=== PATIENT | female | born 1970 | race Caucasian/White ===

== ENCOUNTER 2019-01-20 06:00 | Outpatient (RCR) | payer OTHER, SELFPAY | END 2019-02-19 00:01 | LOC: GPT 06:00 | PROVIDERS: Visit Provider Family Medicine | DX: R51 Headache (principal); V89.2XXA Person injured in unspecified motor-vehicle accident, traffic, initial encounter | CPT/HCPCS: 97110 ×5; 97140 ×5; G0283 ×4 ==

== ENCOUNTER 2019-06-19 06:00 | Outpatient (RCR) | payer BC, SELFPAY | END 2019-06-20 23:59 | disposition home or self-care (01) | LOC: GPT 06:00 | PROVIDERS: PCP Family Medicine; Referring Provider Family Medicine; Visit Provider Family Medicine | DX: S46.912D Strain of unspecified muscle, fascia and tendon at shoulder and upper arm level, left arm, subsequent encounter (principal); X58.XXXD Exposure to other specified factors, subsequent encounter | CPT/HCPCS: 97032; 97110; 97161; 97530 ==

== ENCOUNTER 2019-06-21 06:00 | Outpatient (RCR) | payer BC, SELFPAY | END 2019-07-21 23:59 | disposition home or self-care (01) | LOC: GPT 06:00 | PROVIDERS: PCP Family Medicine; Referring Provider Family Medicine; Visit Provider Family Medicine | DX: S46.912D Strain of unspecified muscle, fascia and tendon at shoulder and upper arm level, left arm, subsequent encounter (principal); X58.XXXD Exposure to other specified factors, subsequent encounter | CPT/HCPCS: 97032; 97110; 97112; 97140; G0283 ==

== ENCOUNTER 2019-07-22 06:00 | Outpatient (RCR) | payer BC, SELFPAY | END 2019-08-20 23:59 | disposition home or self-care (01) | LOC: GPT 06:00 | PROVIDERS: PCP Family Medicine; Visit Provider Family Medicine | DX: S46.912D Strain of unspecified muscle, fascia and tendon at shoulder and upper arm level, left arm, subsequent encounter (principal); X58.XXXD Exposure to other specified factors, subsequent encounter | CPT/HCPCS: 97032; 97110; 97140; 97164; 97530 ==

== ENCOUNTER 2019-10-21 08:47 | Outpatient (CLI) | payer BC, SELFPAY ==
--- NOTE | 2019-10-21 08:50 | MM_ITS ---
WS: [id number] BILATERAL DIGITAL SCREENING MAMMOGRAPHY WITH CAD CLINICAL INFORMATION: SCREENING HISTORY: Screening mammogram. No current complaints. COMPARISON: None. TECHNIQUE: Bilateral CC and MLO views. FINDINGS: Scattered fibroglandular densities bilaterally. No suspicious focal mass, asymmetry, calcifications, or architectural distortion. No evidence of malignancy. MM/[id number] IMPRESSION: BI-RADS: 1-Negative FOLLOW UP: 1 Year Follow-up Recommend return to annual screening mammography.
== END 2019-10-21 08:48 | disposition home or self-care (01) ==
LOC: RADSHAW 08:47
PROVIDERS: PCP Family Medicine; Visit Provider Family Medicine
DX: Z12.31 Encounter for screening mammogram for malignant neoplasm of breast (principal)
CPT/HCPCS: 77067

== ENCOUNTER 2020-08-05 06:00 | Outpatient (RCR) | payer BC, SELFPAY | END 2020-08-19 23:59 | disposition home or self-care (01) | LOC: GPT 06:00 | PROVIDERS: PCP Family Medicine; Referring Provider Podiatrist; Visit Provider Podiatrist | DX: M76.822 Posterior tibial tendinitis, left leg (principal) | CPT/HCPCS: 97032; 97110; 97140; 97161; 97530; 97760 ==

== ENCOUNTER 2020-08-20 06:00 | Outpatient (RCR) | payer OTHER, SELFPAY | END 2020-09-19 23:59 | disposition home or self-care (01) | LOC: GPT 06:00 | PROVIDERS: PCP Family Medicine; Referring Provider Podiatrist; Visit Provider Podiatrist | DX: M76.822 Posterior tibial tendinitis, left leg (principal); M25.572 Pain in left ankle and joints of left foot; M25.672 Stiffness of left ankle, not elsewhere classified | CPT/HCPCS: 97110; 97112; 97116; 97140; 97164; 97530 ==

== ENCOUNTER 2020-09-20 06:00 | Outpatient (RCR) | payer OTHER, SELFPAY | END 2020-10-20 23:59 | disposition home or self-care (01) | LOC: GPT 06:00 | PROVIDERS: PCP Family Medicine; Referring Provider Podiatrist; Visit Provider Podiatrist | DX: M76.822 Posterior tibial tendinitis, left leg (principal) | CPT/HCPCS: 97110; 97112 ==

== ENCOUNTER → 2020-11-02 16:35 | Outpatient (BNVA) | payer OTHER, SELFPAY | PROVIDERS: PCP Family Medicine; Visit Provider Podiatrist Foot & Ankle Surgery | DX: M79.671 Pain in right foot (principal); M19.071 Primary osteoarthritis, right ankle and foot | CPT/HCPCS: 73630 ==

== ENCOUNTER 2020-11-10 14:39 | Outpatient (CLI) | payer OTHER, SELFPAY | END 2020-11-10 14:40 | disposition home or self-care (01) | LOC: WOUND 14:40 | PROVIDERS: PCP Family Medicine; Visit Provider Nurse Practitioner Family | DX: E11.621 Type 2 diabetes mellitus with foot ulcer (principal); L97.512 Non-pressure chronic ulcer of other part of right foot with fat layer exposed | CPT/HCPCS: 11042; G0463 ==

== ENCOUNTER 2020-11-17 11:07 | Outpatient (CLI) | payer OTHER, SELFPAY | END 2020-11-17 11:08 | disposition home or self-care (01) | LOC: WOUND 11:08 | PROVIDERS: PCP Family Medicine; Visit Provider Thoracic Surgery (Cardiothoracic Vascular Surgery) | DX: Z09 Encounter for follow-up examination after completed treatment for conditions other than malignant neoplasm (principal) | CPT/HCPCS: 99212 ==

== ENCOUNTER → 2020-12-17 15:43 | Outpatient (BNVA) | payer OTHER, SELFPAY | PROVIDERS: PCP Family Medicine; Visit Provider Podiatrist Foot & Ankle Surgery | DX: M25.572 Pain in left ankle and joints of left foot (principal) | CPT/HCPCS: 73610; 73630 ==

== ENCOUNTER 2020-12-28 14:15 | Outpatient (CLI) | payer OTHER, SELFPAY ==
--- NOTE | 2020-12-28 14:22 | MM_ITS ---
WS: [id number] BILATERAL SCREENING DIGITAL MAMMOGRAM WITH CAD HISTORY: SCREENING COMPARISON: 10/20/2019 Bilateral CC and MLO views submitted. Computer aided detection analyzed. Breast composition: There are scattered areas of fibroglandular density. No suspicious masses, microc alcifications or architectural distortion. MM/[place] [id number] IMPRESSION: BI-RADS: 1-Negative FOLLOW UP: 1 Year Follow-up
== END 2020-12-28 14:16 | disposition home or self-care (01) ==
LOC: RADSHAW 14:20
PROVIDERS: PCP Family Medicine; Visit Provider Family Medicine
DX: Z12.31 Encounter for screening mammogram for malignant neoplasm of breast (principal)
CPT/HCPCS: 77067

== ENCOUNTER 2021-08-20 06:00 | Outpatient (RCR) | payer OTHER, SELFPAY | END 2021-09-19 23:59 | disposition home or self-care (01) | LOC: GPT 06:00 | PROVIDERS: PCP Family Medicine; Referring Provider Podiatrist Foot & Ankle Surgery; Visit Provider Podiatrist Foot & Ankle Surgery | DX: M72.2 Plantar fascial fibromatosis (principal); M76.71 Peroneal tendinitis, right leg; M76.72 Peroneal tendinitis, left leg | CPT/HCPCS: 97035; 97110; 97112; 97140 ==

== ENCOUNTER 2021-09-20 06:00 | Outpatient (RCR) | payer OTHER, SELFPAY | END 2021-10-20 23:59 | disposition home or self-care (01) | LOC: GPT 06:00 | PROVIDERS: PCP Family Medicine; Referring Provider Podiatrist Foot & Ankle Surgery; Visit Provider Podiatrist Foot & Ankle Surgery | DX: M72.2 Plantar fascial fibromatosis (principal); M76.72 Peroneal tendinitis, left leg; M76.71 Peroneal tendinitis, right leg | CPT/HCPCS: 97110; 97112; 97140; 97164; 97535 ==

== ENCOUNTER 2021-10-21 06:00 | Outpatient (RCR) | payer OTHER, SELFPAY | END 2021-11-19 23:59 | disposition home or self-care (01) | LOC: GPT 06:00 | PROVIDERS: PCP Family Medicine; Visit Provider Podiatrist Foot & Ankle Surgery | DX: M72.2 Plantar fascial fibromatosis (principal); M76.72 Peroneal tendinitis, left leg | CPT/HCPCS: 97110; 97140 ==

== ENCOUNTER 2022-01-28 13:32 | Outpatient (CLI) | payer OTHER, SELFPAY ==
--- NOTE | 2022-01-28 13:41 | MM_ITS ---
WS: [id number] Bilateral screening 3D tomosynthesis digital mammogram, 01/28/2022 Clinical Data: SCREENING Comparison: 12/28/2020, 10/21/2019. Findings: The breast parenchymal pattern shows fibroglandular tissue. No spiculated masses or clustered calcifi cations are seen. There are no secondary signs of carcinoma. MM/[place] [id number] Impression: 1. Negative bilateral mammogram unchanged. 2. Recommend annual screening mammograms. BIRADS: 1-Negative FOLLOW UP: 1 Year Follow-up The CAD cargo checker was used.
== END 2022-01-28 13:33 | disposition home or self-care (01) ==
LOC: RAD 13:33
PROVIDERS: PCP Family Medicine; Visit Provider Family Medicine
DX: Z12.31 Encounter for screening mammogram for malignant neoplasm of breast (principal)
CPT/HCPCS: 77063; 77067

== ENCOUNTER 2022-02-28 14:54 | Outpatient (CLI) | payer OTHER, SELFPAY ==
--- NOTE | 2022-02-28 15:16 | CTR_ITS ---
PROCEDURE INFORMATION: Exam: CT Abdomen And Pelvis With Contrast Exam date and time: 02/28/2022 4:27 PM Age: 51 years old Clinical indication: Abdominal pain; Acute; Prior surgery; Surgery date: 6+ months; Surgery type: Hernia, gb; Patient HX: RT lower quad pain x 2 wks getting worse; Additional info: Acute R abdominal pain, stat TECHNIQUE: Imaging protocol: Computed tomography of the abdomen and pelvis with contrast. Contrast material: OMNIPAQUE 350; Contrast volume: 95 ml; Contrast route: INTRAVENOUS (IV); COMPARISON: ES surgery / GI images 05/10/2016 3:55 AM RADIATION DOSE METRICS: Total DLP (mGy-cm): 1635.63 FINDINGS: Limitations: Significant streak artifact throughout the study due to the patient's obesity and contact of the body with the CT gantry. Liver: Diffuse fatty infiltration of the liver. No nodule. Hepatomegaly measuring 27.0 cm. Gallbladder and bile ducts: The gallbladder is absent. The bile ducts are normal. Pancreas: Normal. No ductal dilation. Spleen: Normal. No splenomegaly. Adrenal glands: Normal. No mass. Kidneys and ureters: Normal. No hydronephrosis. Stomach and bowel: Unremarkable. No obstruction. No mucosal thickening. Appendix: The appendix is visualized and is normal. Intraperitoneal space: Unremarkable. No free air. No significant fluid collection. Vasculature: Unremarkable. No abdominal aortic aneurysm. Lymph nodes: Unremarkable. No enlarged lymph nodes. Urinary bladder: Unremarkable as visualized. Reproductive: Unremarkable as visualized. Bones/joints: Mild curvature and severe degenerative changes of the spine. No fracture. Soft tissues: Diastasis recti with probable prior anterior mesh placement. CT/CT abdomen pelvis w con* [id number] IMPRESSION: 1. No acute findings. 2. Hepatomegaly with diffuse fatty infiltration. 3. Evaluation is limited by significant streak artifact
[2022-02-28] MEDS: iohexol 350 mg/mL 100 mL Btl IV (16:33)
== END 2022-02-28 14:55 | disposition home or self-care (01) ==
PROVIDERS: PCP Family Medicine; Visit Provider Nurse Practitioner
DX: R10.31 Right lower quadrant pain (principal)
CPT/HCPCS: 74177; Q9967

== ENCOUNTER → 2022-03-01 15:12 | Outpatient (BNVA) | payer OTHER, SELFPAY | PROVIDERS: PCP Family Medicine; Visit Provider Family Medicine | DX: K65.0 Generalized (acute) peritonitis (principal); R10.31 Right lower quadrant pain | CPT/HCPCS: 80053; 81000; 83690; 85025 ==

== ENCOUNTER 2023-04-05 14:58 | Outpatient (CLI) | payer BC, SELFPAY ==
--- NOTE | 2023-04-05 16:00 | MM_ITS ---
WS: [id number] BILATERAL 3D TOMOSYNTHESIS DIGITAL SCREENING MAMMOGRAPHY WITH CAD CLINICAL INFORMATION: SCREENING HISTORY: Screening mammogram. No current complaints. COMPARISON: 2021 TECHNIQUE: Bilateral CC and MLO views. FINDINGS: Scattered fibroglandular densities bilaterally. No suspicious focal mass, asymmetry, calcifications, or architectural distortion. No evidence of malignancy. A few tiny incidental punctate calcifications . Stable intramammary lymph node RIGHT breast. IMPRESSION: MM/[place] [id number] BI-RADS: 2-Benign FOLLOW UP: 1 Year Follow-up Recommend return to annual screening mammography.
== END 2023-04-05 14:59 | disposition home or self-care (01) ==
LOC: MOBLMAM 15:06
PROVIDERS: PCP Nurse Practitioner; Visit Provider Nurse Practitioner
DX: Z12.31 Encounter for screening mammogram for malignant neoplasm of breast (principal); R92.323 Mammographic fibroglandular density, bilateral breasts
CPT/HCPCS: 77063; 77067

== ENCOUNTER 2023-09-01 06:00 | Outpatient (RCR) | payer BC, SELFPAY | END 2023-09-20 23:59 | disposition home or self-care (01) | LOC: GPT 06:00 | PROVIDERS: Visit Provider Physical Medicine & Rehabilitation | DX: M54.50 Low back pain, unspecified (principal) | CPT/HCPCS: 97110; 97112; 97140; 97162 ==

== ENCOUNTER 2023-09-21 06:00 | Outpatient (RCR) | payer BC, SELFPAY | END 2023-10-11 23:59 | disposition home or self-care (01) | LOC: GPT 06:00 | PROVIDERS: Visit Provider Physical Medicine & Rehabilitation | DX: M54.50 Low back pain, unspecified (principal) | CPT/HCPCS: 97110; 97112 ==

== ENCOUNTER 2024-06-13 11:40 | Outpatient (CLI) | payer BC, SELFPAY ==
--- NOTE | 2024-06-13 11:40 | MM_ITS ---
WS: [id number] VIEWS: MLO and CC views both breasts. 3D digital tomosynthesis is also included in this exam. Comparison made with prior exam of 04/05/2023 and 10/21/2019 Findings: There are scattered areas of fibroglandular density. No suspicious mass, tumor calcification or architectural distortion. MM/MM scr BI tomosynthesis [id number] Impression: BI-RADS: 2 - Benign FOLLOW-UP: 1 Year Follow-up This mammogram was also analyzed by the Computer Aided Detection System R2 Imag [employer]ing Enforcement Manager.
== END 2024-06-13 11:41 | disposition home or self-care (01) ==
LOC: MOBLMAM 11:41
PROVIDERS: PCP Nurse Practitioner; Visit Provider Nurse Practitioner
DX: Z12.31 Encounter for screening mammogram for malignant neoplasm of breast (principal); R92.323 Mammographic fibroglandular density, bilateral breasts
CPT/HCPCS: 77063; 77067